=== PATIENT | female | born 1950 | race Caucasian/White ===

== ENCOUNTER 2019-09-01 15:09 | Outpatient (CLI) | payer MEDICARE, MEDICAID, SELFPAY ==
--- NOTE | ~2019-09-01 | CT_ITS ---
EXAMINATION: CT chest w con DATE: 09/01/2019 15:56 INDICATION: Lung nodule TECHNIQUE: Transaxial computed tomographic images of the chest were obtained after the administration of 75 cc of Omnipaque 350 intravenous contrast. The dose-length product (DLP) was 470.48 mGy-cm. Ite rative reconstruction was used. COMPARISON: 05/29/2018, 05/23/2018 FINDINGS: Calcified pulmonary nodules and calcified mediastinal lymph nodes are consistent with old g ranulomatous disease. No suspicious lung nodule is identified. There is mild dependent atelectasis. N o pleural effusion or pneumothorax is identified. There is mild emphysema. Mild dependent atelectasis is noted. No pathologically enlarged thoracic lymph nodes are identified. The heart size is normal. The lungs are free of focal airspace opacities. Heterogeneous enhancement of the spleen likely relate s to phase of contrast. IMPRESSION: 1. Mild emphysema. No suspicious lung nodule identified. Reviewed, dictated and finalized at location A.
[2019-09-01 15:51] LABS: Estimated Glomerular Filt Rate > 60
[2019-09-01 16:48] LABS: Basophils Percent Auto 0.2 % (0.2-1.2); Eosinophils Absolute Auto 0.1 K/mm3 (0-0.3); Eosinophils Percent Auto 0.5 % (0-4.4); Hematocrit 45.6 % (37.0-47.0); Hemoglobin 15.1 g/dL (12.0-15.0); Immature Granulocyte Absolute 0.07 K/mm3 (0.00-0.031); Immature Granulocyte Percent A 0.5 % (0-0.5); Lymphocytes Absolute Auto 2.22 K/mm3 (0.9-3.2); Lymphocytes Percent Auto 17.3 % (18.3-44.2); Mean Corpuscular HGB Conc 33.1 g/dl (32-36); Mean Corpuscular Volume 87.7 fl (80-100); Mean Platelet Volume 10.4 fl (7.4-10.4); Monocytes Percent Auto 7.4 % (2.6-8.5); Neutrophils Absolute Auto 9.5 K/mm3 (1.3-6.7); Neutrophils Percent Auto 74.1 % (45.5-73.1); Platelet Count Result 176 k/mm3 (150-375); Red Cell Distribution Width 13.7 % (11.5-14.5); White Blood Count 12.8 K/mm3 (4.5-10.0)
[2019-09-01 17:00] LABS: Alanine Aminotransferase 37 U/L (4-35); Alkaline Phosphatase 75 U/L (38-126); Aspartate Amino Transferase 29 U/L (14-36); Bilirubin,Total 1.5 mg/dL (0.2-1.3); Blood Urea Nitrogen 23 mg/dL (7-17); Calcium 9.1 mg/dL (8.4-10.2); Carbon Dioxide 29 mmol/L (22-30); Chloride 104 mmol/L (98-107); Estimated Glomerular Filt Rate > 60; Glucose 125 mg/dL (65-105); Potassium 3.6 mmol/L (3.4-5.0); Sodium 138 mmol/L (137-145)
[2019-09-01 17:04] LABS: Prothrombin Time 13.2 Seconds (11.1-14.7)
[2019-09-01 17:05] LABS: Partial Thromboplastin Time 24.6 SECONDS (22.3-36.8)
== END 2019-09-01 15:10 | disposition home or self-care (01) ==
PROVIDERS: PCP Family Medicine; Visit Provider Nurse Practitioner
DX: J43.9 Emphysema, unspecified (principal); I10 Essential (primary) hypertension; R23.3 Spontaneous ecchymoses
CPT/HCPCS: 36415; 71260; 80053; 85025; 85610; 85730; Q9967

== ENCOUNTER 2020-04-18 10:55 | Outpatient (CLI) | payer MEDICARE, MEDICAID, SELFPAY ==
--- NOTE | ~2020-04-18 | CT_ITS ---
EXAMINATION: CT abdomen wo con DATE: 04/18/2020 11:34 INDICATION: Disease of the spleen TECHNIQUE: Computed tomography (CT) of the abdomen was performed without intravenous contrast. The do se-length product (DLP) was 766.11 mGy-cm. Automated exposure control and iterative reconstruction te chnique were employed. COMPARISON: 09/01/2019 FINDINGS: Minimal dependent atelectasis is present in the lung bases. The heart size is normal. Calci fied pulmonary nodules are consistent with old granulomatous disease. A punctate calcification of the spleen is also consistent with old granulomatous disease. The spleen is grossly unchanged in size si nce the comparison CT however evaluation of the parenchyma is limited by the absence of intravenous c ontrast. Stones are present in the nondistended gallbladder. The liver, pancreas, and adrenal glands appear normal. The right kidney is unremarkable. There are no pathologically enlarged abdominal lymph nodes. No dilated loops of bowel are evident. There is no free intraperitoneal gas. Calcified athero sclerosis is noted. There is moderate inflammatory change surrounding the left renal pelvis and proxi mal left ureter. Moderate thoracolumbar spondylosis is noted. IMPRESSION: 1. Limited evaluation of the spleen due to absence of intravenous contrast. Grossly no change. The fi ndings on the comparison examination most likely reflect early phase of contrast administration. 2. Moderate inflammatory change surrounding the left renal pelvis left proximal ureter. Findings coul d reflect urinary tract infection or possibly be related to urolithiasis. Recommend clinical correlat ion for left flank pain and consider urinalysis. Reviewed, dictated and finalized at location A. LOADER AND UNLOADER IMPRESSION: 1. Limited evaluation of the spleen due to absence of intravenous contrast. Raine ssly no change. The findings on the comparison examination most likely reflect early phase of contrast administration. 2. Moderate inflammatory change surrounding the left renal pelvis left proximal ureter. Findings could reflect urinary tract infection or possibly be related to urolithiasis. Recommend clinical correlation for left flank pain and conside r urinalysis.
== END 2020-04-18 10:56 | disposition home or self-care (01) ==
PROVIDERS: PCP Family Medicine; Visit Provider Nurse Practitioner Family
DX: D73.89 Other diseases of spleen (principal)
CPT/HCPCS: 74150

== ENCOUNTER 2020-08-12 13:27 | Outpatient (CLI) | payer MEDICARE, MEDICAID, SELFPAY ==
--- NOTE | 2020-08-12 | ECHO_ITS ---
Patient Info Name: Sulma Herbert Age: 69 years : 1950 Gender: Female Ht: 62 in Wt: 160 lbs BSA: 1.81 m2 HR: 73 bpm BP: 138 / 84 mmHg Technical Quality: Fair Exam Date: 08/12/2020 1:46 PM Exam Location: [facility] Patient Status: Outpatient Admit Date: 08/12/2020 Staff Ordering Physician: Leatha, Gladys Harrison APRN Wood Floor Layer: Lety Alejandro RDCS Attending Provider: Sarkis, Gladys Harrison APRN Referring Physician: Leatha MOJICA; Exam Type: CA echo doppler color flow Study Info Indications R06.02 - Shortness of breath Complete two-dimensional, color flow and Doppler transthoracic echocardiogram is performed. Summary 1. Complete two-dimensional, color flow and Doppler transthoracic echocardiogram is performed. 2. Left ventricular chamber dimension is normal. 3. Left ventricular systolic function is normal, estimated at 60-65%. 4. The left ventricular diastolic function is grade I diastolic dysfunction. 5. E/e' 9 is minimally elevated. 6. Global longitudinal strain is mildly abnormal at -16.4%. 7. Left atrial chamber dimension is mildly enlarged. 8. There is moderate aortic valve sclerosis. 9. The mitral valve has mildly calcified annulus. 10. Mild pulmonary hypertension, estimated pulmonary arterial systolic pressure is 44 mmHg. Left Ventricle E/e' 9 is minimally elevated. Global longitudinal strain is mildly abnormal at -16.4%. Left ventricular chamber dimension is normal. Left ventricular systolic function is normal, estimated at 60-65%. The left ventricular diastolic function is grade I diastolic dysfunction. Right Ventricle Right ventricular chamber dimension is normal. Right ventricular systolic function is normal. Left Atria Left atrial chamber dimension is mildly enlarged. Right Atria Right atrial chamber dimension is normal. Aortic Valve The aortic valve is trileaflet. There is moderate aortic valve sclerosis. There is no aortic valve stenosis. There is no aortic valve regurgitation. Pulmonic Valve There is no pulmonic regurgitation. Mitral Valve The mitral valve has mildly calcified annulus. There is no mitral valve stenosis. There is no mitral valve regurgitation. Tricuspid Valve There is no tricuspid valve regurgitation. Mild pulmonary hypertension, estimated pulmonary arterial systolic pressure is 44 mmHg. Pericardium/Pleural There is no pericardial effusion. Inferior Vena Cava Normal inferior vena cava with >50% collapse upon inspiration consistent with normal right atrial pressure, 5 mmHg. Aorta The aortic root size at the sinus of Valsalva is normal. Left Ventricular Outflow Tract Name Value Normal LVOT 2D LVOT Diameter 2.0 cm LVOT Doppler LVOT Peak Gradient 5 mmHg LVOT Mean Gradient 3 mmHg LVOT VTI 21 cm LVOT VTI/AV VTI Ratio 0.7 LVOT Stroke Volume 69 ml LVOT CO 5.9 l/min LVOT CI 3.3 l/min/m2 Pulmonic Valve -----
== END 2020-08-12 13:28 | disposition home or self-care (01) ==
LOC: ANHCARD 13:29
PROVIDERS: PCP Family Medicine; Visit Provider Nurse Practitioner Family
DX: R06.02 Shortness of breath (principal); I08.3 Combined rheumatic disorders of mitral, aortic and tricuspid valves
CPT/HCPCS: 93306

== ENCOUNTER 2020-12-06 10:09 | Outpatient (CLI) | payer MEDICARE, MEDICAID, SELFPAY ==
--- NOTE | ~2020-12-06 | MM_ITS ---
EXAMINATION: MM screening [facility] BI w huseyin HISTORY: Screening TECHNIQUE: Craniocaudal and mediolateral oblique 3-D tomosynthesis images were obtained and synthetic 2-D images were generated. CAD analysis was submitted and interpreted. COMPARISON: Comparison to multiple prior studies sequentially, with oldest reviewed study dated 06/2011. BREAST PARENCHYMAL COMPOSITION: There are scattered areas of fibroglandular density. FINDINGS: There is no evidence of suspicious mass, calcification, or architectural distortion to sugg est malignancy in either breast. There has been no suspicious interval change. IMPRESSION: 1. No mammographic evidence of malignancy. 2. Recommend routine screening mammography in one year. BI-RADS Category 1: Negative Reviewed, dictated and finalized at location A.
== END 2020-12-06 10:10 | disposition home or self-care (01) ==
LOC: ANHIMG 10:16
PROVIDERS: PCP Family Medicine; Visit Provider Nurse Practitioner Family
DX: Z12.31 Encounter for screening mammogram for malignant neoplasm of breast (principal)
CPT/HCPCS: 77063; 77067

== ENCOUNTER 2021-02-10 08:01 | Outpatient (CLI) | payer MEDICARE, MEDICAID, SELFPAY ==
--- NOTE | 2021-02-10 | EST_ITS ---
Patient Info Name: Sulma Herbert Age: 70 years : 1950 Gender: Female Ht: 62 in Wt: 160 lbs BSA: 1.81 m2 HR: 66 bpm BP: 145 / 73 mmHg Heart Rhythm: Sinus Rhythm Exam Date: 02/10/2021 9:47 AM Exam Location: [facility] Stress Patient Status: Outpatient Admit Date: 02/10/2021 Staff Ordering Physician: Jacob, Jaimie COURTNEY Attending Provider: Jacob, Jaimie COURTNEY Exercise Technologist: Gisselle Levine CT Exercise Physician: Cj Mensah DO Exam Type: CA stress mary w NM Study Info Indications R94.31 - Abnormal electrocardiogram ECG EKG A regadenoson stress test was performed. Summary 1. 1. Negative lexiscan stress test for ischemic ST changes by ECG criteria. 2. 2. Baseline hypertension. 3. 3. Nuclear scan to follow and will be reported separately. Please correlate with it. 4. 4. Patient informed of the above results. Protocol: Lexiscan Stress ECG Details Stage: REST Duration (min): 3 min : 38 sec HR (bpm): 66 SBP (mmHg): 145 DBP (mmHg): 73 Stage: REST Duration (min): 8 min : 39 sec HR (bpm): 60 SBP (mmHg): 145 DBP (mmHg): 73 Stage: STAGE 1 Duration (min): 1 min : 0 sec HR (bpm): 89 SBP (mmHg): 128 DBP (mmHg): 74 Stage: RECOVERY Duration (min): 1 min : 0 sec HR (bpm): 94 SBP (mmHg): 128 DBP (mmHg): 74 Stage: RECOVERY Duration (min): 1 min : 51 sec HR (bpm): 88 SBP (mmHg): 159 DBP (mmHg): 73 Rest HR: 60 bpm Peak HR: 95 bpm Rest Sys BP: 145 mmHg Peak Sys BP: 159 mmHg Max Pred HR: 150 bpm % Max Pred HR: 63 % Target HR: 128 bpm Max RPP: 15,105 bpm*mmHg Termination Reason: Completed protocol Cardiac Symptoms: Shortness of breath Total Time: 1 min : 0 sec Rest Cotton BP: 73 mmHg Peak Cotton BP: 73 mmHg Total Dose: 0.4 mg Resting ECG Sinus rhythm, first degree AV block. Stress ECG No ST changes. Arrhythmias None. Report Signatures
--- NOTE | ~2021-02-10 | NM_ITS ---
EXAMINATION: NM mary stress w perfusion DATE: 02/10/2021 10:41 INDICATION: Abnormal electrocardiogram. TECHNIQUE: Rest images were obtained following intravenous administration of 10.9 mCi Tc99m tetrofosm in (Myoview). The patient was infused intravenously with Lexiscan (regadenoson). Then, 30.66 mCi Tc99 m tetrofosmin (Myoview) was administered intravenously, and stress images were obtained. Data was rec onstructed into short axis and horizontal and vertical long axis SPECT images. Gated SPECT images wer e also obtained. COMPARISON: Myocardial perfusion imaging 08/01/2018 FINDINGS: There is no definite reversible or fixed perfusion abnormality to suggest ischemia or infar ction. There is no segmental wall motion abnormality. Left ventricular ejection fraction measures 7 0%. IMPRESSION: 1. No definite ischemia or infarct. 2. Normal left ventricular ejection fraction measuring 70%. Reviewed, dictated and finalized at location A. BITS MANAGER
== END 2021-02-10 08:02 | disposition home or self-care (01) ==
LOC: ANHCARD 08:11
PROVIDERS: PCP Family Medicine; Visit Provider Nurse Practitioner Family
DX: R94.31 Abnormal electrocardiogram [ECG] [EKG] (principal); I10 Essential (primary) hypertension
CPT/HCPCS: 78452; 93017; A9502; J2785

== ENCOUNTER 2024-07-07 15:15 | Outpatient (CLI) | payer MEDICARE, SELFPAY ==
--- NOTE | ~2024-07-07 | US_ITS ---
US arterial ankle brachial ind INDICATION: Atherosclerosis. TECHNIQUE: Segmental pressures and plethysmographic and Doppler waveforms of the brachial and lower e xtremity arteries were obtained. COMPARISON: None. FINDINGS: Right and left brachial artery pressures of 190 mm Hg and 182 mm Hg, respectively, are concordant (no rmal difference <= 30 mmHg). The right ankle-brachial index (GRISELDA) is 1 (normal >= 0.9-1.0). The right great toe-brachial index (TB I) is 0.67 (normal >= 0.60). The left GRISELDA is 0.91. The left TBI is 0.68. There is biphasic flow bilaterally. IMPRESSION: 1. Normal ankle-brachial indices. Reviewed, dictated and finalized at location A.
--- OUTSIDE RECORDS SUMMARY | 2024-07-07 17:13 | XMS_ITS | Clinical Summary ---
Author Organization [facility] Address [facility] [place] [address] Care Team Providers Care Net Developer Programmer Name Role Phone Mahesh Lagunas MD Primary Care Provider Allergies Active Allergy Reactions Criticality Noted Date Comments Nickel Hives Low 02/18/2018 Sulfa Antibiotics Anaphylaxis High 02/18/2018 Medications naproxen 500 MG tablet Take 500 mg by mouth 2 (two) times daily as needed for Pain. 2 8 Active mometasone 50 MCG/ACT nasal spray 17 g by Nasal route daily. Each nare daily, 17 gm 1 8 Active NYSTOP powder Apply 1 Dose topically 4 (four) times daily as needed. 2 8 Active montelukast 10 MG tablet Take 10 mg by mouth daily. 2 8 Active rosuvastatin 20 MG tablet Take 20 mg by mouth nightly at bedtime. 0 8 Active paroxetine 40 MG tablet Take 40 mg by mouth daily. 2 8 Active ANORO ELLIPTA 62.5-25 MCG/INH inhaler Inhale 1 puff into the lungs daily. 3 8 Active DEXILANT 60 MG capsule Take 1 capsule by mouth daily. 3 8 Active multi vitamin/mineral s tabletIndicatio ns:THERA Take 1 tablet by mouth daily. Active cetirizine 10 MG tablet Take 10 mg by mouth daily. Active baclofen 10 MG tablet TK 1 T PO TID PRN 2 8 Active vitamin D2, ergocalciferol, 89352 UNITS capsule TK 1 C PO Q WK 0 9 Active benazepril 40 MG tablet Take 40 mg by mouth daily. 3 9 Active lorazepam 0.5 MG tablet TK 1 T PO D NEEDED. 0 9 Active amLODIPine 5 MG tablet Take 5 mg by mouth daily. 0 Active metoprolol succinate ER 25 MG 24 hr tablet 0 Active Active Problems Problem Noted Date Diagnosed Date Avascular necrosis of right femoral head ([facility]) 10/01/2019 Primary osteoarthritis of right knee 08/07/2018 Status post-operative repair of closed fracture of right hip 05/15/2018 Closed subtrochanteric fract ure of hip, right, initial encounter ([facility]) 02/19/2018 Immunizations Immunization Administration Dates Next Due Fluzone High Dose - >Age 65 (Prefilled Syringe) 01/09/2019,12/10/2017 MODERNA COVID-19 (12+) MRNA, LNP-S, PF, 100 MCG/ 0.5 ML DOSE 05/13/2020,04/15/2020 Family History Medical History Relation Comments Cancer Brother lung Liver Disease Father Psoriasis Father Cancer Sister cervical Relation Status Comments Brother Father Mother Sister Social History Tobacco Use Types Packs/Day Years Used Date Smoking Tobacco: Former Electronic Cigarettes Quit: 02/19/2008 Smokeless Tobacco: Never Tobacco Cessation:Counseling Given: Yes Alcohol Use Standard Drinks/Week Comments Yes 0 (1 standard drink = 0.6 oz pur e alcohol) wine once a month Comments Unknown Sex and Gender Information Value Date Recorded Sex Assigned at Not on file Legal Sex Female 7:31 PM CDT Gender Identity Female 02/18/2018 10:08 PM REFRIGERATION OPERATOR Sexual Orientation Straight 02/18/2018 10 :08 PM REFRIGERATION OPERATOR Last Filed Vital Signs Vital Sign Reading Time Taken Comments Blood Pressure 138/82 10/01/2019 12:02 PM CDT Pulse 76 10/01/2019 12:02 PM CDT Temperature 36.8 C (98.3 F) 10/01/2019 12:02 PM CDT Respiratory Rate 20 02/27/2018 3:51 PM REFRIGERATION OPERATOR Oxygen Saturation 94% 02/27/2018 3:51 PM REFRIGERATION OPERATOR Inhaled Oxygen Concentration - - Weight 98.3 kg (216 lb 11.2 oz) 020 12:02 PM CDT Height 157.5 cm (5' 2 ) 10/01/2019 12:0 2 PM CDT Body Mass Index 39.63 10/01/2019 12:02 PM CDT Plan of Treatment Health Maintenance Due Date Last Done Comments Colorectal Cancer Screening Colonoscopy (10 Years) 1950 Hepatitis C 1968 DTaP, Tdap and Td Vaccines ( 1 - Tdap) 1969 Mammogram Screening 1990 Pneumococcal Vaccine: 50+ Years (1 of 1 - PCV) 2000 Zoster Vaccines (1 of 2) 2000 Annual Medicare Wellness Visit 08/19/2015 COVID-19 Vaccine (3 - 2023-2 5 season) 2023 05/13/2020, 04/15/2020 RSV Immunization or 60+ Years (1 - 1-dose 75+ series) 2025 Dexa Scan (General) Completed 05/14/2018 Meningococcal B Vaccine Aged Out No l onger eligible based on patient's age to complete this topic Meningococcal Vaccine Aged Out No evin christina eligible based on patient's age to complete this topic RSV Immunizations Under 20 Months Aged Out No longer eligible b ased on patient's age to complete this topic Medical Devices Implanted Type Area Manager Order Device Identifier Shelf Expiration Date Model / Serial / Lot Trochanteric Nail Kit Implanted:Qty: 1 on 02/19/2018 by Odilon Olivera MD at [facility] Right: Hip [employer] [id number] 08/08/2022 [id number] S / / [id number] Screw Gamma 3 Jing - [id number] Implanted:Qty: 1 on 02/19/2018 by Odilon Olivera MD at [facility] Right: Hip [employer] 06/08/2021 [id number] S / / [id number] Locking Screw Implanted:Qty: 1 on 02/19/2018 by Odilon Olivera MD at [facility] Right: Hip [employer] [id number] 10/08/2022 [id number] S / / [id number] Explanted Type Area Manager Order Device Identifier Shelf Expiration Date Model / Serial / Lot Lag Screw Implanted:Qty: 1 Explanted:Qty: 1 on 02/19/2018 at [facility] Right: Hip [employer] [id number] 08/08/2022 [id number] / / [id number] Description:wasted Procedures Procedure Name Priority Date/Time Associated Diagnosis Comments BONE DENSITY GENERIC (SCAN ORDER) 05/14/2018 from Last 3 Months or Most Recently Relevant to Health Maintenance Results * BONE DENSITY GENERIC (05/14/2018) Anatomical Region Laterality Modality Other 05/14/2018 Narrative 05/14/2018 Ordered by an unspecified provider. us Documents Scanned SCANNING Final Result from Last 3 Months or Most Recently Relevant to Health Maintenance Insurance MEDICAID AETNA MEDICAID Advance Directives * Full Code (Latest Code Status on File) Date Activated Date Inactivated Comments 02/20/2018 2:18 AM 02/27/2018 9:11 PM * Full Code Date Activated Date Inactivated Comments 02/18/2018 10:58 PM 02/20/2018 2:18 AM Care Teams Net Developer Programmer Relationship Specialty Start Date End Date Mahesh Lagunas MD [address] [place] [address] PCP - General FAMILY PRACTICE 02/08/18
== END 2024-07-07 15:16 | disposition home or self-care (01) ==
PROVIDERS: PCP Family Medicine; Visit Provider Registered Nurse
DX: I70.213 Atherosclerosis of native arteries of extremities with intermittent claudication, bilateral legs (principal)
CPT/HCPCS: 93922

== ENCOUNTER 2024-08-28 15:46 | Emergency (ER) | payer MEDICARE, SELFPAY ==
--- NOTE | 2024-08-28 15:48 | ED.EXTPRO ---
HPI - Extremity Problem General Chief complaint: Wound/Laceration Stated complaint: finger nail pain Time Seen by Provider: 08/28/24 15:48 Source: patient Mode of arrival: ambulatory Limitations: no limitations History of Present Illness HPI Narrative: Sulma is a 74-year-old female patient presenting to the clinic today with complaints of left thumb nail pain. Symptoms started approximately 4-5 days ago. States that she thinks she may have an ingrown fingernail. Was seen by her primary care doctor's office today and they could not do anything for her so she came to the [facility]. Denies any fevers, chills, body aches. States she tried to do ?surgery? on her finger using a toenail clippers without relief. Related Data Home Medications ?Medication ?Instructions ?Recorded ?Confirmed ?Last Taken ?Type dexlansoprazole 60 mg mg 08/28/24 Unknown History capsule,biphase delayed release lisinopril 40 mg tablet mg 08/28/24 Unknown History metformin 500 mg tablet mg 08/28/24 Unknown History naproxen 500 mg tablet mg 08/28/24 Unknown History oxybutynin chloride 15 mg mg PO 08/28/24 Unknown History tablet,extended release 24 hr rosuvastatin 20 mg tablet mg 08/28/24 Unknown History sertraline 100 mg tablet mg 08/28/24 Unknown History Allergies Allergy/AdvReac Type Severity Reaction Status Date / Time Sulfa (Sulfonamide Allergy Severe Anaphylactic Verified 08/28/24 15:58 Antibiotics) Shock nickel Allergy Intermediate Unknown Verified 08/28/24 15:58 Review of Systems Review of Systems: Pertinent positives per HPI. Patient denies any fever, chills, rash, headache, visual changes, dizziness, cough, shortness of breath, chest pain, palpitations, nausea, vomiting, diarrhea, constipation, abdominal pain, or any urinary issues. PMFSH Comments At the time of my signature, I reviewed and agree with the nursing past medical, surgical, social, and family history. There is no relevant family history pertinent to the patient complaint. Exam Narrative: General: Well-developed, well nourished, in no apparent distress Head: Normocephalic, atraumatic. Cardio: Regular rate and rhythm, s1 and s2 normal, no murmur appreciated. Resp: Clear to auscultation bilaterally, no rhonchi, rales, wheezing or rubs. Integumentary: [place], warm, and dry, mild redness with very little swelling to the lateral distal thumb nail-fungal infection to nail/nail bed, tenderness to palpation Course Course Emergency Course: Portions of this record may have been created with voice recognition software. Level of Care: Express Care Visit Vital Signs Vital signs: Vital Signs Temperature 36.6 C 08/28/24 15:57 Pulse Rate 83 08/28/24 15:57 Respiratory Rate 16 08/28/24 15:57 Blood Pressure 147/64 H 08/28/24 15:57 Pulse Oximetry 97 08/28/24 15:57 Oxygen Delivery Room Air 08/28/24 15:57 Temperature 36.6 C 08/28/24 15:57 Pulse Rate 83 08/28/24 15:57 Respiratory Rate 16 08/28/24 15:57 Blood Pressure 147/64 H 08/28/24 15:57 Pulse Oximetry 97 08/28/24 15:57 Oxygen Delivery Room Air 08/28/24 15:57 Vital signs reviewed MDM - Extremity (Nontraumatic) MDM Narrative Medical decision making narrative: At the time of visit patient is resting comfortably on the exam table. Patient appears to be nontoxic. Plan: Patient has a probable ingrown fingernail/fungal nail infection with localized redness. No drainage. Explained to the patient that there was not much I could do in the clinic today however I would look up UpToDate recommendations for further treatment options for her condition. Patient decided that she wanted to just leave the clinic after assessment and go to the emergency room for further evaluation. Offer to contact the emergency room and transfer patient there however she declined and states she would just like to leave at this time. She is not willing to wait for any discharge instructions. Differential Diagnosis Differential diagnosis: Likely gout, cellulitis and other (Ingrown fingernail, nail fungal infection) Discharge Plan Discharge Clinical Impression: Fungal nail infection, Ingrown thumb nail, left Patient Disposition: Elopement After Seen by Prov Condition: Stable Patient Language: Icelandic Prescriptions: No Action metformin 500 mg tablet oxybutynin chloride 15 mg tablet extended release 24hr PO sertraline 100 mg tablet lisinopril 40 mg tablet naproxen 500 mg tablet rosuvastatin 20 mg tablet dexlansoprazole 60 mg capsule,biphase delayed releas Follow-up/Referrals: Mahesh Lagunas MD [Primary Care Provider] - Time of Disposition: 16:12 Quality NIHSS Nursing Documentation ED NIHSS nursing documentation: reviewed/agree
[2024-08-28 15:57] VITALS: BP 147/64; PULSE 83; RESP 16; TEMP 36.6; O2SAT 97
--- NOTE | 2024-08-28 16:09 | PC.NURSE ---
1609- While NEURODIAGNOSTIC TECH was researching tx. Pt came by nursing station and stated she was just going to go to the ER. Pt did not want to be transferred, states she would just go. Then stated, I will not receive a bill for this, right? Was educated by NEURODIAGNOSTIC TECH she would as she had been seen. But then states, But you couldn't do anything for me. Pt was upset and left facility.
== END 2024-08-28 16:09 | disposition left against medical advice (07) ==
LOC: EXPTROY 15:50
PROVIDERS: Emergency Provider Nurse Practitioner Family; PCP Family Medicine
DX: B35.1 Tinea unguium (principal); L60.0 Ingrowing nail; Z79.899 Other long term (current) drug therapy
CPT/HCPCS: 99212; G0463